=== PATIENT | female | born 1980 | race Caucasian/White ===

== ENCOUNTER 2019-11-25 00:34 | Emergency (ER) | payer BC ==
[2019-11-25] MEDS ORDERED: Dexamethasone 10 MG/ML VIAL ONE (01:04)
[2019-11-25] MEDS ORDERED: Prochlorperazine 10 MG/2 ML VIAL ONE ×3 (01:04→01:07)
[2019-11-25] MEDS ORDERED: diphenhydrAMINE 50 MG/ML VIAL ONE (01:04)
== END 2019-11-25 01:40 | disposition home or self-care (01) ==
LOC: MADERS 00:34
DX: G43.909 Migraine, unspecified, not intractable, without status migrainosus (principal); E66.9 Obesity, unspecified; Z79.899 Other long term (current) drug therapy
CPT/HCPCS: 96372; 99283; J0780; J1100; J1200